=== PATIENT | male | born 1950 | race Two or more races ===

== ENCOUNTER 2018-02-12 08:41 | Outpatient (CLI) | payer OTHER | END 2018-02-12 23:59 | disposition home or self-care (01) | LOC: RAD 08:41 | PROVIDERS: ATTEND Internal Medicine Gastroenterology | DX: K80.20 Calculus of gallbladder without cholecystitis without obstruction (principal); B19.20 Unspecified viral hepatitis C without hepatic coma | CPT/HCPCS: 76700 ==